=== PATIENT | female | born 1965 | race Caucasian/White ===

== ENCOUNTER → 2017-09-10 | Outpatient (CLI) | payer OTHER ==
[~2017-09-10] MED LIST: IBUPROFEN 600600 M1 PO; MULTIVITAMINS1 EAC7 PO
== END ==
LOC: EDBD 01:12 → RAD 01:12
DX: Z12.31 Encounter for screening mammogram for malignant neoplasm of breast (principal)

== ENCOUNTER → 2017-09-16 | Outpatient (CLI) | payer OTHER ==
[~2017-09-16] VITALS: Ht 162.6 cm; Wt 70.3 kg
== END | disposition home or self-care (01) ==
LOC: GI 07:09
DX: Z12.11 Encounter for screening for malignant neoplasm of colon (principal); K57.30 Diverticulosis of large intestine without perforation or abscess without bleeding; K64.8 Other hemorrhoids
CPT/HCPCS: 62110; 62900

== ENCOUNTER → 2017-10-29 | Outpatient (CLI) | payer OTHER ==
--- NOTE | ~2017-10-29 | PATH ---
[facility] [place] [address] PATHOLOGY RPT PROCEDURE Name: ZEESHANHUNG Room #: REG RAUL Chiu.#: [id number] Admission: 10/29/17 Date of : 67 Discharge: Report #: [id number] Path Case #: [id number] [facility] Accession Number: [id number] . 01 Material submitted: . BIOPSY, LEFT BREAST 9:00 SA Clinical history: . Nodule . 02 Diagnosis: Breast biopsy "left breast 9:00": - Sclerosing adenosis with columnar cell change, microcalcification, radial scar and focal atypical ductal hyperplasia. The entire area measures 1.2 cm in greatest dimensions microscopically. - Immunoperoxidase stain p63 and smooth muscle myosin on block A1, A2 and A3 is positive. - Immunoperoxidase stain CK5/6 block A1 has some peripheral staining consistent with focal atypical ductal hyperplasia. [facility]/10/31/2017 . 02 Comment: This case was also reviewed by another pathologist, Dr. Anabel Green. . (SHA:pit; 10/31/2017) . 02 Electronically signed: . Rey Ann MD, Pathologist NPI- [id number] . 01 Gross description: . Received in formalin labeled "Hung Parrish, left breast 9," are multiple needle cores of yellow-angel fibrofatty tissue measuring approximately 2.1 x 0.5 x 0.2 cm in aggregate dimensions. The specimen is submitted entirely in cassettes A1 through A3. The cold ischemic time is 5 minutes. The total formalin fixation time is approximately 9 hours and 15 minutes. (TSD; 10/29/2017) TOB/TOB . 02 CPT . 010358 Performed at: [address] [id number] MD Jovany Swenson MD Phone: [phone] Performed at: 02 [facility] [address] [place] [address] PATHOLOGY RPT PROCEDURE Name: HUNG PARRISH Room #: REG [facility] Brian.#: [id number] Admission: 10/29/17 Date of : 67 Discharge: Report #: [id number] Path Case #: [id number] [address] [place], [place] [id number] MD Anabel Green MD Phone: [phone]
== END | disposition home or self-care (01) ==
LOC: ULTRA 10:41
DX: N60.91 Unspecified benign mammary dysplasia of right breast (principal); N60.21 Fibroadenosis of right breast; R92.1 Mammographic calcification found on diagnostic imaging of breast; Z85.828 Personal history of other malignant neoplasm of skin; Z98.890 Other specified postprocedural states

== ENCOUNTER 2018-02-20 05:22 | Day surgery (SDC) | payer OTHER ==
[~2018-02-20] VITALS: Ht 162.6 cm; Wt 71.2 kg
--- NOTE | ~2018-02-20 | PATH ---
[facility] [place] [address] PATHOLOGY RPT PROCEDURE Name: HUNG PARRISH Room #: DEP [facility] M.R.#: [id number] Admission: 02/20/18 Date of : 67 Discharge: 02/20/18 Report #: [id number] Path Case #: [id number] L[facility] Accession Number: [id number] . 01 Material submitted: . LEFT BREAST SEGMENTAL RESECTION . 01 Clinician provided ICD-10: N60.92 . 01 Clinical history: . Atypical ductal hyperplasia . 02 Diagnosis: Breast, left breast segmental resection: - DUCTAL CARCINOMA IN SITU, LOW NUCLEAR GRADE AND CRIBRIFORM TYPE MEASURING 5x3 MM IN GREATEST DIMENSION. - Background of radial scar associated with elastosis, sclerosing adenosis, columnar cell hyperplasia, apocrine metaplasia and usual ductal hyperplasia. - Margins of resection free of malignancy; closest lateral margin is 3 mm away and remainder margins more than 5 mm away. - Negative for invasive carcinoma (please see comment). (IUV:nunu; 02/24/2018) . . SURGICAL PATHOLOGY CANCER CASE SUMMARY: . . Protocol posting date: June 2017 . . DCIS OF THE BREAST: . . Specimen Identification . The following 3 elements identifying the specimen may be listed separately or on 1 line: . Procedure ___ Excision . . Specimen Laterality ___ Left . . [facility] [address] [place] [address] PATHOLOGY RPT PROCEDURE Name: HUNG PARRISH Room #: DEP [facility] M.R.#: [id number] Admission: 02/20/18 Date of : 67 Discharge: 02/20/18 Report #: [id number] Path Case #: [id number] Tumor Site ___ Central . ___ Position (specify): 9 o'clock . Size (Extent) of DCIS Estimated size (extent) of DCIS (greatest dimension using gross and microscopic evaluation): at least (millimeters):5 x 3 mm . Histologic Type ___ Ductal carcinoma in situ . Architectural Patterns ___ Cribriform . Nuclear Grade ___ Grade I (low) . Necrosis ___ Not identified . Margins ___ Uninvolved by DCIS . Distance from closest margin (millimeters): 3mm . Specify closest margin: Lateral . Regional Lymph Nodes . ___ No lymph nodes submitted or found . . Pathologic Stage Classification (pTNM, AJCC 8th Edition) Note: Reporting of pT, pN, and (when applicable) pM categories is based on information available to the pathologist at the time the report is issued. Only the applicable T, N, or M category is required for reporting; their definitions need not be included in the report. The categories (with modifiers when applicable) can be listed on 1 line or more than 1 line. . Primary Tumor (pT) ___ pTis (DCIS): Ductal carcinoma in situ . . Category (pN) . ___ pNX: Regional lymph nodes cannot be assessed (eg, not [facility] [address] [place] [address] PATHOLOGY RPT PROCEDURE Name: HUNG PARRISH Room #: DEP [facility] M..#: [id number] Admission: 02/20/18 Date of : 67 Discharge: 02/20/18 Report #: [id number] Path Case #: [id number] removed for pathological study or previously removed) . . Microcalcifications ___ Present in nonneoplastic and neoplastic tissue S/02/25/2018 . 02 Comment: Slides A6, and A8 were co-reviewed by Dr. Rey Ann including the immunohistochemical stains. . Immunohistochemical stains are performed on block A6. CK5/6 shows loss of the mosaic pattern consistent with the diagnosis rendered. P63 and SMMHC are intact, consistent with ductal carcinoma in situ. Based on the finding of DCIS, ER and FL are ordered on Block A6 and sent for Image Analysis. Please refer to a separate report to follow. (IUV:nunu; 02/24/2018) . 02 Addendum: . Special studies report received from [facility], [address] [place] [address], [address], [place], [address], on case [id number], labeled with their number [id number], dated 02/28/2018. . Breast/Prognostic Marker Analysis . Specimen Site: Left Breast (Segmental Resection), Ductal Carcinoma In Situ (DCIS) Specimen ID #: [id number] . ER (Estrogen Receptor) Present/Positive Percent: 80.00% Analysis: Manual Comments: Staining Intensity: Strong. . FL (Progesterone Receptor) Present/Positive Percent: 80.00% Analysis: Manual Comments: Staining Intensity: Strong. . Time to Fixation (Cold Ischemic Time): 18 minutes Duration of Fixation: Greater than 6 hours less than 72 hours Type of Fixative: 10% Neutral Buffered Formalin . [place] [address] PATHOLOGY RPT PROCEDURE Name: SIVAKUMARTERRENCEHUNG Room #: DEP [facility] BrianFabiana#: [id number] Admission: 02/20/18 Date of : 67 Discharge: 02/20/18 Report #: [id number] Path Case #: [id number] Lukas Quispe M.D. Pathologist . . Methodology A rabbit monoclonal antibody (clone SP1) that recognized the Estrogen Receptor is used to perform immunohistochemistry on routinely fixed (formalin) paraffin embedded tissue on the [place] [employer]. The specimen is processed using a polymer detection system. The percentage of stained tumor nuclei is determined either manually or by image analysis. This test is intended for in vitro diagnostic use. This test is used for clinical purposes. . A rabbit monoclonal antibody (clone 1E2) that recognized the Progesterone Receptor is used to perform immunohistochemistry on routinely fixed (formalin) paraffin embedded tissue on the [place] [employer]. The specimen is processed using a polymer detection system. The percentage of stained tumor nuclei is determined either manually or by image analysis. This test is intended for in vitro diagnostic use. This test is used for clinical purposes. . Intended Use: This antibody is intended for in vitro diagnostic (IVD) use. Estrogen Receptor (ER) (SP1) is a rabbit monoclonal antibody (IgG) that is intended for the qualitative detection of estrogen receptor (ER) antigen in sections of formalin-fixed, paraffin-embedded tissue. ER is a rabbit monoclonal antibody that recognizes human estrogen receptor alpha. . This antibody is intended for in vitro diagnostic (IVD) use. Progesterone Receptor (FL) (1E2) is a rabbit monoclonal antibody (IgG) that is intended for the qualitative detection of progesterone receptor (FL) antigen in sections of formalin fixed, paraffin embedded tissue. FL is a rabbit monoclonal antibody that recognizes the A and B forms of the human progesterone receptor. . Disclaimer This Test was performed by [employer] at [address] [place] [address], [address]. . [facility] [employer] is a business unit of [employer]. a wholly-owned subsidiary of [employer]. . This assay has not been validated on decalcified tissues. Results should be interpreted with caution if this specimen was decalcified given the likelihood of false negativity on decalcified specimens. . Any image(s) that accompany this report is/are a employer relations representative image(s) [address] [address] PATHOLOGY RPT PROCEDURE Name: HUNG PARRISH #: [facility] [id number] Admission: 02/20/18 Date of : 67 Discharge: 02/20/18 Report #: [id number] Path Case #: [id number] only and should not be used to render a diagnosis. . This interpretation is contingent on the specimen and the clinical information received. . For any special tests/stains performed, known positive cells or tissues are tested with each marker and examined to ensure positivity. Positive and negative internal controls, if present, react appropriately. . This analysis is an adjunct to the evaluation of the referring physician and does not represent a final diagnosis. . The immunohistochemistry tests performed at [facility]. were validated on tissue fixed in 10% neutral buffered formalin. The performance characteristics of the tests performed on tissue processed in other fixatives is not known. . ER/FL ASCO/CAP guidelines require fixation in neutral buffered formalin for a minimum of 6 and a maximum of 72 hours. Fixation times less than 6 hours may not adequately preserve cell proteins. Fixation times longer than 72 hours may cause excess cross-linking of proteins reducing the antigen available for staining. Either scenario can cause reduced staining; hence false negative results are possible and should be considered for these situations. The time from biopsy/excision to fixation in formalin (cold ischemic time) must be less than 1 hour. Time to fixation (cold ischemic time) greater than 1 hour should be interpreted with caution. REF: Brian Phelps, et al. [place] Society of Clinical Oncology/College of [place] Pathologists Guideline Recommendations for Immunohistochemical Testing of Estrogen and Progesterone Receptors in Breast Cancer. J Clin Oncol. 2010 October 31; 28(16): 5848-6553. . A complete copy of the report is on file. . Professional and Technical services performed by [employer]. at [address], [place] [address]. . (AMJ 03/02/2018) LBQ/03/02/2018 Addendum Electronically Signed by Anabel Green MD, Pathologist . 02 Electronically signed: . Anabel Green MD, Pathologist NPI- [id number] . 01 Gross description: . The specimen is received in formalin, labeled "Hung Parrish, left breast segmental resection" and consists of an oriented 26 g segment of yellow-orange fibroadipose tissue measuring 5.5 cm A-P, 3.8 cm S-I, and [address] [address] PATHOLOGY RPT PROCEDURE Name: HUNG PARRISH Room #: [facility] M.R.#: [id number] Admission: 02/20/18 Date of : 67 Discharge: 02/20/18 Report #: [id number] Path Case #: [id number] 2.0 cm L-M. A long suture designates lateral and short suture superficial. There is a metal localization wire protruding from the superficial aspect as well as orange ink designating "corresponding to the clip on [employer]." The specimen is inked as follows: Lateral-yellow, medial-red, anterior-orange, posterior-black, superior-blue, and inferior-green. It is sectioned from anterior to posterior into 12 slices revealing a mass in slices 4-7 that measures 1.5 x 1.0 x 0.8 cm. The mass extends from the margins as follows: 1.5 cm anterior, greater than 2 cm posterior, 0.3 cm lateral, 0.5 cm medial, 1.1 cm superior, and 0.5 cm inferior. Adjacent the mass is hemorrhage consistent with previous biopsy changes. The remainder of the parenchyma consists of yellow lobulated adipose tissue and dense fibrous tissue (approximately 30% of the parenchyma). No additional masses or lesions are identified grossly. The specimen was collected at 10:42 AM on 02/20/18 and placed in formalin at 11 AM. The cold ischemic time is 18 minutes and the total formalin fixation time is greater than 6 hours but less than 72 hours. The specimen is entirely submitted as follows: . A1: Anterior, perpendicular A2: Slice 2 A3: Slice 3 A4-A5: Slice 4 bisected S-I A6-A7: Slice 5 bisected S-I A8-A9: Slice 6 bisected S-I A10-A11: Slice 7 bisected S-I A12-A14: Slice 8 trisected S-I A15-A16: Slice 9 bisected S-I A17: Slice 10 A18: Slice 11 A19-A20: Posterior, perpendicular (SDY; 02/20/2018) SYU/SYU . 02 Pathologist provided ICD-10: D05.12, N60.22, N62, N60.82 . 02 CPT . 274974, V59455, X23579 Specimen Comment: A courtesy copy of this report has been sent to Specimen Comment: [phone], . Specimen Comment: Report sent to and Performed at: [address], [place] [id number] MD Jovany Swenson MD Phone: [phone] Performed at: [address] [id number] [address] [address] PATHOLOGY RPT PROCEDURE Name: HUNG PARRISH Room #: DEP [facility] Aram.#: [id number] Admission: 02/20/18 Date of : 67 Discharge: 02/20/18 Report #: [id number] [facility] Case #: [id number] [place] Anabel Green MD Phone: [phone]
--- NOTE | ~2018-02-20 | O ---
[facility] [place] [address] [address] [place] [address] OPERATIVE REPORT Name: HUNG BYERS Room #: DEP [facility]..#: [id number] Admission: 02/20/18 Attend Phys: Andrea Baumann MD Discharge: 02/20/18 Date of : 67 Report #: [id number] THIS REPORT FOR: //name// CC: Monica Baumann DATE OF SERVICE: 02/20/2018 PREOPERATIVE DIAGNOSIS: Atypical ductal hyperplasia and radial scar, left breast, recent needle biopsy. POSTOPERATIVE DIAGNOSIS: Atypical ductal hyperplasia and radial scar, left breast, recent needle biopsy. OPERATION: Left breast segmental resection with wire localization and specimen x-ray. SURGEON: Andrea Baumann MD SANITATION LABORER: Medical student, VERONA Moser. SECOND SERVICE SUPERVISOR: Medical student, VERONA Hyatt ANESTHESIA: General. DESCRIPTION OF PROCEDURE: Under satisfactory general anesthesia and with the patient in the supine position, the left breast was widely prepped with ChloraPrep solution. Sterile drapes were applied. The radiologist had already performed wire localization for the biopsy clip and biopsy site in the left breast. A circumareolar incision was made and dissection was then carried down through the skin into the breast and then medially to the guidewire, which was delivered into the incision. A segmental resection was performed in order to remove the breast tissue around the shaft and tip of the guidewire as recommended by the radiologist. Specimen x-ray confirmed removal of the clip and the biopsy site and the guidewire together with normal-appearing breast tissue all around. The specimen had already been marked with sutures for orientation purposes. The specimen was now given directly to the pathologist. Palpation from within the breast revealed no other suspicious areas. Hemostasis was obtained using electrocautery. The breast tissue was reapproximated using interrupted 3-0 Vicryl. The skin was approximated using running 4-0 [facility] [place] [address] OPERATIVE REPORT Name: HUNG BYERS Room #: DEP [facility]..#: [id number] Admission: 02/20/18 Attend Phys: Andrea Baumann MD Discharge: 02/20/18 Date of : 67 Report #: [id number] subcuticular PDS. Sterile dressings were applied and the patient was taken to recovery in satisfactory condition. Estimated blood loss was less than 10 mL. <ELECTRONICALLY SIGNED> By: Andrea Baumann MD 03/02/18 1651 1119 1129 Andrea Baumann MD /nt
[2018-02-20 07:05] LABS: URINE BILIRUBIN NEGATIVE (Negative); URINE BLOOD NEGATIVE (Negative); URINE CLARITY CLEAR; URINE COLOR YELLOW; URINE GLUCOSE-RANDOM* NEGATIVE (Negative); URINE KETONES NEGATIVE (Negative); URINE LEUKOCYTES NEGATIVE (Negative); URINE NITRITE NEGATIVE (Negative); URINE PROTEIN (DIPSTICK) NEGATIVE (Negative); URINE SPECIFIC GRAVITY <= 1.005 (1.005-1.035); URINE UROBILINOGEN 0.2 E.U./dl (0.2-1.0)
[2018-02-20 07:57] VITALS: BP 130/89
== END 2018-02-20 12:00 | disposition home or self-care (01) ==
LOC: OR 05:22 → TBA 05:23 → RADSTEREO 11:34 → OR 12:00 → EDSTATUS 12:52 → OR 12:59
PROVIDERS: Specialist
DX: D05.12 Intraductal carcinoma in situ of left breast (principal); N60.12 Diffuse cystic mastopathy of left breast; N60.82 Other benign mammary dysplasias of left breast; N60.22 Fibroadenosis of left breast; Z85.828 Personal history of other malignant neoplasm of skin; Z98.890 Other specified postprocedural states
CPT/HCPCS: 50010; 50101; 50386; 50403; 56524; 56526; 62110; 62900; 70005

== ENCOUNTER → 2018-03-03 | Outpatient (CLI) | payer OTHER | LOC: MRI 09:11 | DX: D05.12 Intraductal carcinoma in situ of left breast (principal) ==

== ENCOUNTER → 2018-03-20 | Outpatient (CLI) | payer OTHER ==
--- NOTE | ~2018-03-20 | PATH ---
[facility] [address] [address] PATHOLOGY RPT PROCEDURE Name: ZEESHANHUNG Room #: REG [facility] M.R.#: [id number] Admission: 03/20/18 Date of : 67 Discharge: Report #: [id number] Path Case #: [id number] [facility] Accession Number: [id number] . 01 Material submitted: . LEFT AXILLARY NODE CORE BX . 01 Clinical history: . None provided. . 02 Diagnosis: Lymph node (left lymph node biopsy) "left axillary node core biopsy": - Reactive changes negative for carcinoma. LBQ/03/23/2018 . 02 Comment: Past history of ductal carcinoma noted. . This case is also reviewed by Dr. Sharla Roman. (DIAZ/db; 03/23/2018) . 02 Electronically signed: . Rey Ann MD, Pathologist NPI- [id number] . 01 Gross description: . Received in formalin labeled "Hung Parrish, left axilla" is a 1.6 x 0.4 x 0.2 cm aggregate of yellow-alvarez soft tissue fragments. The specimen is submitted in cassettes A1-A3. The specimen is removed from the patient at 1430 and placed in formalin at 1435 on March 20, 2018. The specimen is removed from formalin at 1850 on March 22, 2018. ([facility]; 03/21/2018) SYC/SYC . 02 Pathologist provided ICD-10: R59.0 . 02 CPT . 894276 Specimen Comment: A courtesy copy of this report has been sent to Specimen Comment: [phone]. Specimen Comment: Report sent to Performed at: 01 [place] [id number] [address] [id number] MD Jovany Swenson MD Phone: [phone] Performed at: 02 [facility] [address] [place] [address] PATHOLOGY RPT PROCEDURE Name: HUNG PARRISH [facility] [id number] Admission: 03/20/18 Date of : 67 Discharge: Report #: [id number] Path Case #: [id number] [address] [place] [id number] MD Anabel Green MD Phone: [phone]
== END | disposition home or self-care (01) ==
LOC: ULTRA 13:38
DX: R59.0 Localized enlarged lymph nodes (principal); Z85.3 Personal history of malignant neoplasm of breast

== ENCOUNTER → 2018-09-14 | Outpatient (CLI) | payer OTHER | LOC: RAD 03:13 | DX: Z12.31 Encounter for screening mammogram for malignant neoplasm of breast (principal) ==

== ENCOUNTER → 2018-12-08 | Outpatient (CLI) | payer OTHER | LOC: MRI 10:42 | DX: S83.242A Other tear of medial meniscus, current injury, left knee, initial encounter (principal); M71.22 Synovial cyst of popliteal space [Baker], left knee; X58.XXXA Exposure to other specified factors, initial encounter; Y93.89 Activity, other specified; Y92.89 Other specified places as the place of occurrence of the external cause; Y99.8 Other external cause status ==